=== PATIENT | male | born 1970 | race African-American/Black ===

== ENCOUNTER 2016-09-02 10:08 | Outpatient (RCR) | payer OTHER ==
[~2016-09-02] VITALS: Ht 165.1 cm; Wt 148.3 kg
[~2016-09-02 10:08] MED LIST: AUGMENTIN 875-1 EAC1 ORAL
[2016-09-05] MEDS ORDERED: Lidocaine 4% Top Soln 50ml TOPIC ONE (09:45)
== END 2016-09-24 | disposition home or self-care (01) ==
LOC: WCC 10:08
DX: L97.822 Non-pressure chronic ulcer of other part of left lower leg with fat layer exposed (principal); E08.622 Diabetes mellitus due to underlying condition with other skin ulcer; L97.812 Non-pressure chronic ulcer of other part of right lower leg with fat layer exposed; I10 Essential (primary) hypertension; Z87.891 Personal history of nicotine dependence; I50.9 Heart failure, unspecified; Z80.9 Family history of malignant neoplasm, unspecified
CPT/HCPCS: 11042; 11045; 29580; 87070; 87181; 87205

== ENCOUNTER 2016-09-30 10:04 | Outpatient (RCR) | payer OTHER | END 2016-10-22 | disposition home or self-care (01) | LOC: WCC 10:04 | DX: L97.822 Non-pressure chronic ulcer of other part of left lower leg with fat layer exposed (principal); L03.116 Cellulitis of left lower limb; Z79.82 Long term (current) use of aspirin; E11.9 Type 2 diabetes mellitus without complications; E66.01 Morbid (severe) obesity due to excess calories; Z68.43 Body mass index [BMI] 50.0-59.9, adult | CPT/HCPCS: 11042; 11045 ==

== ENCOUNTER 2017-03-23 15:57 | Emergency (ER) | payer OTHER ==
[~2017-03-23] VITALS: Ht 160 cm; Wt 127.0 kg
[2017-03-23] MEDS ORDERED: METFORMIN HCL500 M1 ORAL ×2 (16:18→16:42)
[2017-03-23] MEDS ORDERED: NIFEDIPINE ER60 M2 ORAL (16:18)
--- NOTE | 2017-03-23 16:40 | Emergency Room Report ---
History of Present Illness General Chief Complaint: General Complaint Source: Patient Present Illness HPI 46 YO Male presents to the ED c/o itchy rash on umbilicus and upper lip x 1 week , and pt. states he needs medication refills for atorvastatin, metformin, Lasix , iron, and nifedipine. Patient denies erythema, increased temperature palpation , Fevers, chills, recent trauma or fall. Patient states he has been out of his medications for a couple of weeks. Pmhx of DM, HTN, and hyperlipidemia. Patient denies polyuria polydipsia, frequency, dysuria, abdominal pain, in balance, headaches, nausea, vomiting. Denies CP, Palpitations, LOC, AMS, dizziness, Changes in Vision, Sensation, paresthesias, or a sudden severe headache. Allergies: Coded Allergies: No Known Allergies (Unverified , 11/29/14) Patient History Past Medical History: see triage record, DM, HTN Past Surgical History: none Pertinent Family History: none Reviewed Nursing Documentation: PMH: Agreed, PSxH: Agreed Nursing Documentation-PMH Hx Hypertension: Yes Hx Diabetes: Yes Review of Systems All Other Systems: negative except mentioned in HPI Physical Exam Vital Signs Date Time Temp Pulse Resp B/P Pulse Ox O2 Delivery O2 Flow Rate FiO2 03/23/17 16:10 98.2 101 16 115/70 95 Room Air Sp02 EP Interpretation: reviewed, abnormal - tachycardic 101 General Appearance: no apparent distress, alert, GCS 15, non-toxic Head: normocephalic, atraumatic Eyes: bilateral eye PERRL, bilateral eye normal inspection ENT: hearing grossly normal, normal pharynx, no angioedema, normal voice Neck: full range of motion, supple/symm/no masses Respiratory: lungs clear, normal breath sounds, speaking full sentences Cardiovascular #1: regular rate, rhythm, no edema Gastrointestinal: normal bowel sounds, non tender, soft, no guarding, no rebound, other - excoriations noted to the umbillicus, no appreciable erythema or increased temperature to palpation. Rectal: deferred Genitourinary: normal inspection, no CVA tenderness Musculoskeletal: back normal, gait/station normal, normal range of motion, non- tender Neurologic: alert, oriented x3, responsive, motor strength/tone normal, sensory intact, speech normal Psychiatric: judgement/insight normal, memory normal, mood/affect normal Skin: normal color, warm/dry, well hydrated, rash - dry excoriated plaque noted to the umbillicus, and above the upper lip, there is no erythema, increased temperature to palpation. no bleeding, crusting or d/c. Lymphatic: no adenopathy Medical Decision Making PA Attestation Dr. dang is my supervising Physician whom patient management has been discussed with. Diagnostic Impression: Primary Impression: Rash and nonspecific skin eruption Additional Impression: Medication refill ER Course 46 YO Male presents to the ED c/o itchy rash on umbilicus and upper lip x 1 week , and pt. states he needs medication refills for atorvastatin, metformin, Lasix , iron, and nifedipine. Patient denies erythema, increased temperature palpation , Fevers, chills, recent trauma or fall. Patient states he has been out of his medications for a couple of weeks. Pmhx of DM, HTN, and hyperlipidemia. Patient denies polyuria polydipsia, frequency, dysuria, abdominal pain, in balance, headaches, nausea, vomiting. Denies CP, Palpitations, LOC, AMS, dizziness, Changes in Vision, Sensation, paresthesias, or a sudden severe headache. Ddx considered but are not limited to cellulitis, scabies, shingles, varicella, dermatitis, urticaria, eczema, tinea, hyperglycemia, HTN urgency/emergency. Vital signs: are WNL, pt. is afebrile H&PE are most consistent with rash of the umbilicus, and dry plaque of the upper lip eczema vs tinea. Pt. also needs medication refill. despite being out of medications, pt. has normal BP measurement, and denies symptoms of hyperglycemia such as polyurea/dipsia, abdominal pain, ams. ORDERS: none required at this time, the diagnosis is clinical ED INTERVENTIONS: None required at this time. DISCHARGE: At this time pt. is stable for d/c to home. Will provide printed patient care instructions, and any necessary prescriptions. Care plan and follow up instructions have been discussed with the patient prior to discharge. Last Vital Signs Date Time Temp Pulse Resp B/P Pulse Ox O2 Delivery O2 Flow Rate FiO2 03/23/17 16:10 98.2 101 16 115/70 95 Room Air Disposition: HOME, SELF-CARE Condition: Stable Scripts Triamcinolone Acet (Triamcinolone Acetonide) 15 Gm Cream..g. 1 APPLIC APPLIC BID, #15 GM Prov: Daxa Ferrer 03/23/17 Nystatin* (NYSTATIN*) 15 Gm Cream..g. 1 APPLIC TOPIC THREE TIMES A DAY, #15 GM Prov: Daxa Ferrer 03/23/17 Ferrous Sulfate* (FERROUS SULFATE*) 325 Mg Tablet 325 MG ORAL DAILY for 30 Days, #30 TAB 0 Refills Prov: Daxa Ferrer 03/23/17 Nifedipine Er* (ADALAT CC*) 60 Mg Tablet.er 60 MG ORAL DAILY for 30 Days, #30 TAB Do not chew or crush tablet Prov: Daxa Ferrer 03/23/17 Furosemide* (LASIX*) 80 Mg Tablet 80 MG ORAL DAILY for 30 Days, #30 TAB Prov: Daxa Ferrer 03/23/17 Metformin Hcl* (METFORMIN HCL*) 500 Mg Tablet 500 MG ORAL TWICE A DAY for 30 Days, #60 TAB Prov: Daxa Ferrer 03/23/17 Atorvastatin Calcium* (ATORVASTATIN CALCIUM*) 40 Mg Tablet 40 MG ORAL BEDTIME for 30 Days, #30 TAB Prov: Daxa Ferrer 03/23/17 Patient Instructions: Medicine Refill at the Emergency Department, Rash, Easy- to-Read Additional Instructions: Take medications as directed. Follow up with a Primary Care Provider in 3-5 days, even if your symptoms have resolved. --Please review list of primary care clinics, if you do not already have a primary care provider Return sooner to ED if new symptoms occur, or current symptoms become worse. - Please note that this Emergency Department Report was dictated using N(i)²clinical documentation spec technology software, occasionally this can lead to erroneous entry secondary to interpretation by the dictation equipment. Daxa Ferrer Mar 23, 2017 16:40
[2017-03-23] MEDS ORDERED: ATORVASTATIN CA40 MG ORAL (16:42)
[2017-03-23] MEDS ORDERED: FUROSEMIDE80 M1 ORAL (16:42)
[2017-03-23 16:47] VITALS: BP 118/74
[2017-03-23] MEDS ORDERED: FERROUS SULFAT325 MG ORAL (16:49)
[2017-03-23] MEDS ORDERED: ADALAT CC60 MG ORAL (16:49)
[2017-03-23] MEDS ORDERED: KENALOG 0.025%15 GM APPLIC (16:54)
[2017-03-23] MEDS ORDERED: NYSTATIN15 GM TOPIC (16:54)
[2017-03-23 17:02] VITALS: BP 118/74
== END 2017-03-23 17:03 | disposition home or self-care (01) ==
LOC: EMR 16:45
DX: R21 Rash and other nonspecific skin eruption (principal); Z76.0 Encounter for issue of repeat prescription; I10 Essential (primary) hypertension; E11.9 Type 2 diabetes mellitus without complications
CPT/HCPCS: 99284

== ENCOUNTER 2017-04-08 20:57 | Emergency (ER) | payer OTHER ==
[~2017-04-08] VITALS: Ht 162.6 cm; Wt 124.7 kg
[~2017-04-08 20:57] MED LIST changes: +ADALAT CC60 MG ORAL; +ATORVASTATIN CA40 MG ORAL; +FERROUS SULFAT325 MG ORAL; +FUROSEMIDE80 M1 ORAL; +KENALOG 0.025%15 GM APPLIC; +METFORMIN HCL500 M1 ORAL; +NIFEDIPINE ER60 M2 ORAL; +NYSTATIN15 GM TOPIC
[2017-04-08] MEDS ORDERED: SPIRONOLACTONE25 MG ORAL (21:34)
[2017-04-08] MEDS ORDERED: ADALAT CC60 MG ORAL ×2 (21:34→21:37)
[2017-04-08 21:45] VITALS: BP 141/98
--- NOTE | 2017-04-08 23:03 | Emergency Room Report ---
History of Present Illness General Chief Complaint: Medication Refill Source: Patient Present Illness HPI 46-year-old male presents ED for evaluation. Patient states he is here to get medication refilled. Has history of hypertension. Has run out of his nifedipine and Spironolactone x3 days. In triage patient is hypertensive. Denies any headaches, blurry vision. Denies chest pain or shortness of breath. No other aggravating or relieving factors. Denies any other associated symptoms Allergies: Coded Allergies: No Known Allergies (Unverified , 04/08/17) Patient History Past Medical History: DM, HTN Past Surgical History: none Pertinent Family History: none Social History: Denies: alcohol use, drug use, smoking Immunizations: UTD Reviewed Nursing Documentation: PMH: Agreed, PSxH: Agreed Nursing Documentation-PMH Hx Hypertension: Yes Hx Diabetes: Yes Review of Systems All Other Systems: negative except mentioned in HPI Physical Exam Vital Signs Date Time Temp Pulse Resp B/P Pulse Ox O2 Delivery O2 Flow Rate FiO2 04/08/17 21:14 98.1 105 18 159/102 97 Room Air Sp02 EP Interpretation: reviewed, normal General Appearance: no apparent distress, alert, GCS 15, non-toxic, obese Head: normocephalic, atraumatic Eyes: bilateral eye PERRL, bilateral eye normal inspection ENT: hearing grossly normal, normal pharynx, no angioedema, normal voice Neck: full range of motion, supple/symm/no masses Respiratory: chest non-tender, lungs clear, normal breath sounds, speaking full sentences Cardiovascular #1: regular rate, rhythm, no edema Cardiovascular #2: 2+ carotid (R), 2+ carotid (L), 2+ radial (R), 2+ radial (L) , 2+ dorsalis pedis (R), 2+ dorsalis pedis (L) Gastrointestinal: normal bowel sounds, non tender, soft, non-distended, no guarding, no rebound Rectal: deferred Genitourinary: normal inspection, no CVA tenderness Musculoskeletal: back normal, gait/station normal, normal range of motion, non- tender Neurologic: alert, oriented x3, responsive, motor strength/tone normal, sensory intact, speech normal Psychiatric: judgement/insight normal, memory normal, mood/affect normal, no suicidal/homicidal ideation Reflexes: 3+ bicep (R), 3+ bicep (L), 3+ tricep (R), 3+ tricep (L), 3+ knee (R) , 3+ knee (L) Skin: normal color, no rash, warm/dry, well hydrated Lymphatic: no adenopathy Medical Decision Making Diagnostic Impression: Primary Impression: Encounter for medication refill Additional Impression: Hypertension Qualified Codes: I10 - Essential (primary) hypertension ER Course 46-year-old male presents to ED refill of his medication. History of hypertension hospital course: After initial history and physical, she produces empty pill bottles for Nifedipine and Spironolactate. Given that, I tell patient I will write her for a two-week prescription of these meds. Patient states he will get a PMD for continued care Diagnosis-encounter for medication refill, hypertension Stable and discharged to home with prescription for Spironolactone, Nifedipine. Followup with PMD. Return to ED if symptoms recur or worsen Last Vital Signs Date Time Temp Pulse Resp B/P Pulse Ox O2 Delivery O2 Flow Rate FiO2 04/08/17 21:45 78 16 141/98 99 Room Air 04/08/17 21:14 98.1 Status: improved Disposition: HOME, SELF-CARE Condition: Stable Scripts Nifedipine Er* (ADALAT CC*) 60 Mg Tablet.er 60 MG ORAL TWICE A DAY for 15 Days, TAB Do not chew or crush tablet Prov: ЕКАТЕРИНА BURRIS M.D. 04/08/17 Spironolactone* (ALDACTONE*) 25 Mg Tablet 25 MG ORAL DAILY, #15 TAB Prov: ЕКАТЕРИНА BURRIS M.D. 04/08/17 Referrals: [facility],REFERRING (PCP) Patient Instructions: Medicine Refill at the Emergency Department ЕКАТЕРИНА BURRIS M.D. Apr 08, 2017 23:03
== END 2017-04-08 21:45 | disposition home or self-care (01) ==
LOC: EMR 21:27
DX: I10 Essential (primary) hypertension (principal); Z76.0 Encounter for issue of repeat prescription; E66.9 Obesity, unspecified; E11.9 Type 2 diabetes mellitus without complications; Z68.42 Body mass index [BMI] 45.0-49.9, adult
CPT/HCPCS: 99283

== ENCOUNTER 2017-05-19 22:06 | Emergency (ER) | payer OTHER ==
[~2017-05-19 22:06] MED LIST changes: +SPIRONOLACTONE25 MG ORAL
--- NOTE | 2017-05-20 04:33 | Emergency Room Report ---
History of Present Illness General Chief Complaint: To Be Triaged Present Illness Allergies: Coded Allergies: No Known Allergies (Unverified , 04/08/17) Nursing Documentation-PMH Hx Hypertension: Yes Hx Diabetes: Yes Medical Decision Making Diagnostic Impression: Primary Impression: Patient left without being seen ER Course patient left prior to MD evaluation Status: unchanged Disposition: LEFT W/OUT BEING SEEN Condition: Unknown Referrals: NOT CHOSEN [facility]/,REFERRING (PCP) ЕКАТЕРИНА BURRIS M.D. May 20, 2017 04:33
== END 2017-05-19 23:00 | disposition left against medical advice (07) ==
LOC: EMR 23:00
DX: B99.9 Unspecified infectious disease (principal); Z53.21 Procedure and treatment not carried out due to patient leaving prior to being seen by health care provider
CPT/HCPCS: 99281

== ENCOUNTER 2017-05-26 21:27 | Emergency (ER) | payer OTHER ==
[~2017-05-26] VITALS: Ht 162.6 cm; Wt 113.4 kg
[2017-05-26] MEDS ORDERED: ASPIR 8181 MG ORAL (21:36)
[2017-05-26] MEDS ORDERED: POTASSIUM99 M3 PO (21:36)
[2017-05-26] MEDS ORDERED: BUMETANIDE0.5 MG ORAL (21:36)
[2017-05-26 21:51] VITALS: BP 134/85
[2017-05-26] MEDS ORDERED: BUMETANIDE1 MG ORAL (22:07)
[2017-05-26] MEDS ORDERED: PROCARDIA XL60 MG ORAL (22:07)
[2017-05-26] MEDS ORDERED: METFORMIN HCL500 M1 ORAL (22:07)
--- NOTE | 2017-05-26 22:08 | Emergency Room Report ---
History of Present Illness General Chief Complaint: Hypertension Source: Patient Present Illness HPI Is a 46-year-old male with a history of diabetes, hypertension, sleep apnea presents with chief complaint of high blood pressure. He is out of his medication for about a week now. Wants refills. Denies any other complaint. No nausea no vomiting. No chest pain. No shortness of breath. Allergies: Coded Allergies: No Known Allergies (Unverified , 04/08/17) Patient History Past Medical History: see triage record, old chart reviewed, DM, HTN Past Surgical History: none, other Pertinent Family History: none Social History: Denies: drug use Immunizations: other Reviewed Nursing Documentation: PMH: Agreed, PSxH: Agreed Nursing Documentation-PMH Hx Hypertension: Yes Hx COPD: Yes Hx Diabetes: Yes Review of Systems Eye: Denies: eye pain, blurred vision ENT: Denies: ear pain, nose congestion, throat swelling Respiratory: Denies: cough, shortness of breath Cardiovascular: Denies: chest pain, palpitations Gastrointestinal: Denies: abdominal pain, diarrhea, nausea, vomiting Musculoskeletal: Denies: back pain, joint pain Skin: Denies: rash Neurological: Denies: headache, numbness Endocrine: Denies: increased thirst, increased urine Hematologic/Lymphatic: Denies: easy bruising All Other Systems: negative except mentioned in HPI Physical Exam Vital Signs Date Time Temp Pulse Resp B/P (MAP) Pulse Ox O2 Delivery O2 Flow Rate FiO2 05/26/17 21:29 97.9 102 20 154/104 94 Room Air vitals with high blood pressure Sp02 EP Interpretation: reviewed, normal General Appearance: well appearing, no apparent distress, alert, obese Head: normocephalic, atraumatic Eyes: bilateral eye PERRL, bilateral eye EOMI ENT: hearing grossly normal, normal pharynx Neck: full range of motion, supple, no meningismus Respiratory: chest non-tender, lungs clear, normal breath sounds Cardiovascular #1: regular rate, rhythm, no murmur Gastrointestinal: normal bowel sounds, non tender, no mass, no organomegaly, no bruit, non-distended Musculoskeletal: back normal, gait/station normal, normal range of motion Psychiatric: mood/affect normal Skin: warm/dry Medical Decision Making Diagnostic Impression: Primary Impression: Hypertension Qualified Codes: I10 - Essential (primary) hypertension Additional Impression: Encounter for medication refill ER Course Patient was high blood pressure. No evidence of endorgan damage. We'll refill his medication. Last Vital Signs Date Time Temp Pulse Resp B/P (MAP) Pulse Ox O2 Delivery O2 Flow Rate FiO2 05/26/17 21:51 97.9 101 23 134/85 94 Room Air Status: improved Disposition: HOME, SELF-CARE Condition: Stable Scripts Metformin Hcl* (METFORMIN HCL*) 500 Mg Tablet 500 MG ORAL TWICE A DAY, #60 TAB Prov: ELI WALKER M.D. 05/26/17 Bumetanide* (BUMETANIDE*) 1 Mg Tablet 1 MG ORAL DAILY, #30 TAB Prov: ELI WALKER M.D. 05/26/17 Nifedipine (Procardia Xl) 60 Mg Tab.er.24 60 MG ORAL DAILY, #30 TAB Prov: ELI WALKER M.D. 05/26/17 Patient Instructions: High Blood Pressure (Hypertension) Additional Instructions: Followup your doctor in a week for recheck. Return if symptom worsen. ELI WALKER M.D. May 26, 2017 22:08
[2017-05-26 22:19] VITALS: BP 134/85
== END 2017-05-26 22:31 | disposition home or self-care (01) ==
LOC: EMR 22:31
DX: I10 Essential (primary) hypertension (principal); Z76.0 Encounter for issue of repeat prescription; E11.9 Type 2 diabetes mellitus without complications; J44.9 Chronic obstructive pulmonary disease, unspecified
CPT/HCPCS: 99284

== ENCOUNTER 2017-07-15 17:42 | Emergency (ER) | payer OTHER ==
[~2017-07-15] VITALS: Ht 162.6 cm; Wt 113.4 kg
[~2017-07-15 17:42] MED LIST changes: +ASPIR 8181 MG ORAL; +BUMETANIDE0.5 MG ORAL; +BUMETANIDE1 MG ORAL; +POTASSIUM99 M3 PO; +PROCARDIA XL60 MG ORAL
--- NOTE | 2017-07-15 18:21 | Emergency Room Report ---
History of Present Illness General Chief Complaint: Medication Refill Source: Patient Present Illness HPI 46-year-old male presents to the emergency department requesting refill for his blood pressure medication, diabetic medication in addition to medication for hyperlipidemia. Patient states that he's been out of his blood pressure medication for approximately one week and has been using someone else's medication that is different. Patient reports still 5/10 in severity headache denies visual changes, nausea, vomiting, sudden acute onset of headache. Patient states that he has been taking his diabetic medications regularly and he took a dose today he states that he will run out soon and is requesting refill. Patient denies polyuria polydipsia, abdominal pain or changes in mentation.Denies CP, Palpitations, LOC, AMS, dizziness, Changes in Vision, Sensation, paresthesias, or a sudden severe headache. Allergies: Coded Allergies: No Known Allergies (Unverified , 04/08/17) Patient History Past Medical History: see triage record Past Surgical History: none Pertinent Family History: none Immunizations: UTD Reviewed Nursing Documentation: PMH: Agreed, PSxH: Agreed Nursing Documentation-PMH Past Medical History: No History, Except For Hx Hypertension: Yes Hx COPD: Yes Hx Diabetes: Yes Review of Systems All Other Systems: negative except mentioned in HPI Physical Exam Vital Signs Date Time Temp Pulse Resp B/P (MAP) Pulse Ox O2 Delivery O2 Flow Rate FiO2 07/15/17 17:56 98.1 83 18 165/101 95 Room Air Sp02 EP Interpretation: reviewed, normal General Appearance: no apparent distress, alert, GCS 15, non-toxic Head: normocephalic, atraumatic Eyes: bilateral eye normal inspection, bilateral eye PERRL ENT: hearing grossly normal, no angioedema, normal voice Neck: full range of motion Respiratory: lungs clear, normal breath sounds, speaking full sentences Cardiovascular #1: regular rate, rhythm Rectal: deferred Musculoskeletal: back normal, gait/station normal, normal range of motion, non- tender Neurologic: alert, oriented x3, responsive, motor strength/tone normal, sensory intact, speech normal Skin: normal color, no rash, warm/dry, well hydrated Lymphatic: no adenopathy Medical Decision Making PA Attestation Dr. dang is my supervising Physician whom patient management has been discussed with. Diagnostic Impression: Primary Impression: Encounter for medication refill ER Course 46-year-old male presents to the emergency department requesting refill for his blood pressure medication, diabetic medication in addition to medication for hyperlipidemia. Patient states that he's been out of his blood pressure medication for approximately one week and has been using someone else's medication that is different. Patient reports still 5/10 in severity headache denies visual changes, nausea, vomiting, sudden acute onset of headache. Patient states that he has been taking his diabetic medications regularly and he took a dose today he states that he will run out soon and is requesting refill. Patient denies polyuria polydipsia, abdominal pain or changes in mentation.Denies CP, Palpitations, LOC, AMS, dizziness, Changes in Vision, Sensation, paresthesias, or a sudden severe headache. Ddx considered but are not limited to: drug seeking, OD, HTN urgency, DKA, HONA just to name a few. Vital signs: are WNL, pt. is afebrile H&PE are most consistent with need for medication refill. ORDERS: none required at this time, the diagnosis is clinical ED INTERVENTIONS: -Nifedipine PO DISCHARGE: At this time pt. is stable for d/c to home. Will provide printed patient care instructions, and any necessary prescriptions. Care plan and follow up instructions have been discussed with the patient prior to discharge. Last Vital Signs Date Time Temp Pulse Resp B/P (MAP) Pulse Ox O2 Delivery O2 Flow Rate FiO2 07/15/17 17:56 98.1 83 18 165/101 95 Room Air Disposition: HOME, SELF-CARE Condition: Stable Scripts Atorvastatin Calcium* (ATORVASTATIN CALCIUM*) 40 Mg Tablet 40 MG ORAL BEDTIME, #20 TAB Prov: Daxa Ferrer P.A. 07/15/17 Bumetanide* (BUMETANIDE*) 2 Mg Tablet 2 MG ORAL DAILY, #30 TAB Prov: Daxa Ferrer P.A. 07/15/17 Spironolactone* (ALDACTONE*) 25 Mg Tablet 25 MG ORAL DAILY, #30 TAB Prov: Daxa Ferrer P.A. 07/15/17 Metformin Hcl* (METFORMIN HCL*) 500 Mg Tablet 500 MG ORAL TWICE A DAY, #60 TAB Prov: Daxa Ferrer P.A. 07/15/17 Nifedipine Er* (NIFEDIPINE ER*) 60 Mg Tab.er.24 60 MG ORAL DAILY, #30 TAB Prov: Daxa Ferrer 07/15/17 Patient Instructions: Medicine Refill at the Emergency Department Additional Instructions: Take medications as directed. Follow up with a Primary Care Provider in 3-5 days, even if your symptoms have resolved. --Please review list of primary care clinics, if you do not already have a primary care provider Return sooner to ED if new symptoms occur, or current symptoms become worse. - Please note that this Emergency Department Report was dictated using MemBlazehome care nurse technology software, occasionally this can lead to erroneous entry secondary to interpretation by the dictation equipment. Daxa Ferrer Jul 15, 2017 18:21
[2017-07-15] MEDS ORDERED: NIFEDIPINE ER60 M3 ORAL (18:24)
[2017-07-15] MEDS ORDERED: METFORMIN HCL500 M1 ORAL (18:24)
[2017-07-15] MEDS ORDERED: BUMETANIDE2 MG ORAL (18:24)
[2017-07-15] MEDS ORDERED: ATORVASTATIN CA40 MG ORAL (18:24)
[2017-07-15] MEDS ORDERED: SPIRONOLACTONE25 MG ORAL (18:24)
[2017-07-15 18:27] VITALS: BP 165/101
[2017-07-15 19:08] VITALS: BP 159/89
== END 2017-07-15 19:12 | disposition home or self-care (01) ==
LOC: EMR 18:06
DX: Z76.0 Encounter for issue of repeat prescription (principal); I10 Essential (primary) hypertension; J44.9 Chronic obstructive pulmonary disease, unspecified; E11.9 Type 2 diabetes mellitus without complications
CPT/HCPCS: 99284

== ENCOUNTER 2018-03-24 09:57 | Emergency (ER) | payer OTHER ==
[~2018-03-24] VITALS: Ht 160 cm; Wt 136.1 kg
[~2018-03-24 09:57] MED LIST changes: +BUMETANIDE2 MG ORAL; +NIFEDIPINE ER60 M3 ORAL
[2018-03-24] MEDS ORDERED: FUROSEMIDE40 MG ORAL (10:11)
[2018-03-24] MEDS ORDERED: LISINOPRIL5 MG ORAL (10:11)
[2018-03-24] MEDS ORDERED: BENADRYL25 MG ORAL (11:16)
[2018-03-24] MEDS ORDERED: PREDNISONE20 MG ORAL (11:16)
[2018-03-24] MEDS ORDERED: VOLTAREN100 G1 TP (11:17)
--- NOTE | 2018-03-24 11:34 | Diagnostic Imaging Report ---
Indication: Shortness of breath Technique: XRAY Chest 1v Comparison: 01/01/2012 Findings: Limited exam due to underpenetration, likely related to patient's large body habitus. Stable cardiomegaly. Fashion mild peribronchial thickening. No definite focal consolidation. Costophrenic sulci are sharp. No pneumothorax. Osseous structures stable. IMPRESSION: Question mild peribronchial thickening. Correlate for reactive or small airway disease. No focal airspace consolidation, pleural effusion or pneumothorax. Stable mild cardiomegaly.
[2018-03-24 11:51] VITALS: BP 101/53
--- NOTE | 2018-03-24 13:22 | Emergency Room Report ---
History of Present Illness General Chief Complaint: Edema Source: Patient Present Illness HPI Patient is a 47-year-old male who presented after increased upper lip swelling. Patient gradual onset of symptoms. He denies any recent VIBHA inhibitor use. He reports having increased pain and discomfort to his left lower extremity as well. He reported having some additional swelling to his right hand. He denies recent trauma. The patient states that he had not been having any difficulty breathing or tongue swelling. Allergies: Coded Allergies: No Known Allergies (Unverified , 04/08/17) Patient History Reviewed Nursing Documentation: PMH: Agreed; PSxH: Agreed Nursing Documentation-PMH Hx Hypertension: Yes Hx COPD: Yes Hx Diabetes: Yes Review of Systems All Other Systems: negative except mentioned in HPI Physical Exam Vital Signs Date Time Temp Pulse Resp B/P (MAP) Pulse Ox O2 Delivery O2 Flow Rate FiO2 03/24/18 10:06 98.6 100 18 101/53 98 Room Air 98.6 Sp02 EP Interpretation: reviewed, normal General Appearance: normal inspection, well appearing, no apparent distress, alert, GCS 15, non-toxic, obese Head: atraumatic ENT: hearing grossly normal, normal voice, other - upper lip swelling, no uvula swelling or tongue swelling Neck: normal inspection, full range of motion, supple, no bony tend Respiratory: normal inspection, lungs clear, normal breath sounds, no respiratory distress, no retraction, no wheezing Cardiovascular #1: regular rate, rhythm, edema - bilateral lower extremity Gastrointestinal: normal inspection, normal bowel sounds, non tender, soft, no guarding, no hernia Genitourinary: no CVA tenderness Musculoskeletal: normal inspection, back normal, normal range of motion Neurologic: normal inspection, alert, oriented x3, responsive, resident services director III-XII nml as tested, speech normal Psychiatric: normal inspection, judgement/insight normal, mood/affect normal Skin: normal inspection, normal color, no rash Medical Decision Making Diagnostic Impression: Primary Impression: Allergic reaction ER Course Patient presented for lip swelling. Differential diagnosis included was not limited to angioedema, abscess, allergic reaction, burn among others. Patient has a benign exam and does not appear to require any further imaging or laboratory testing at this time. The patient appears to be having multiple areas of swelling and was given oral Benadryl as well as prednisone. Patient does not appear to have any airway compromise at this time. Patient is advised to not take lisinopril. The patient states he has not been taking this regularly.The patient is advised to follow up with primary care doctor in 1-2 days. Patient is advised to return if any worsening condition or if any changes in status that are concerning. This report is dictated with [employer] lead software developer software which may occasionally lead to discrepancies related to use of this software. Last Vital Signs Date Time Temp Pulse Resp B/P (MAP) Pulse Ox O2 Delivery O2 Flow Rate FiO2 03/24/18 11:51 98.6 18 101/53 98 Room Air 98.6 03/24/18 10:16 100 Status: improved Disposition: HOME, SELF-CARE Condition: Stable Scripts Diclofenac Sodium (VOLTAREN) 100 Gm Gel..gram. 100 GM TP NEEDED, #100 GM Prov: Eleuterio Jain MD 03/24/18 Prednisone* (PREDNISONE*) 20 Mg Tablet 60 MG ORAL DAILY, #12 TAB Prov: Eleuterio Jain MD 03/24/18 Diphenhydramine Hcl* (BENADRYL*) 25 Mg Capsule 25 MG ORAL Q6H PRN for Itching, #30 CAP Prov: Eleuterio Jain MD 03/24/18 Referrals: [facility],REFERRING (PCP) Patient Instructions: Peripheral Edema Eleuterio Jain MD Mar 24, 2018 13:22
== END 2018-03-24 11:52 | disposition home or self-care (01) ==
LOC: EMR 11:24
DX: T78.40XA Allergy, unspecified, initial encounter (principal); X58.XXXA Exposure to other specified factors, initial encounter; Y92.9 Unspecified place or not applicable; E11.9 Type 2 diabetes mellitus without complications; I10 Essential (primary) hypertension; J44.9 Chronic obstructive pulmonary disease, unspecified
CPT/HCPCS: 71045; 99284; J7512

== ENCOUNTER 2018-06-12 20:31 | Emergency (ER) | payer OTHER ==
[~2018-06-12] VITALS: Ht 165.1 cm; Wt 158.8 kg
[~2018-06-12 20:31] MED LIST changes: +BENADRYL25 MG ORAL; +FUROSEMIDE40 MG ORAL; +LISINOPRIL5 MG ORAL; +PREDNISONE20 MG ORAL; +VOLTAREN100 G1 TP
--- NOTE | 2018-06-12 21:09 | Emergency Room Report ---
History of Present Illness General Chief Complaint: To Be Triaged Source: Patient Present Illness HPI Patient presents with several problems. He has shortness of breath. His history of asthma and COPD. He's been out of his medications for several days. Also has a sore throat and right ear pain. He also stubbed his right little toe and has had pain there. He's worried that his blood pressures out of control because is not taking his medications. He denies any chest pain at this time. He has heard himself wheezing with exertion. Some orthopnea. He rates the pain in his toe as 8/10. He thinks it is broken. H/O CHF H/O COPD H/O sleep apnea No fevers, chills, chest pain, headache, rashes, joint pain, back pain, bleeding problems, NVD. He does have edema which is worse off of his meds. He denies calf pain. Allergies: Coded Allergies: No Known Allergies (Unverified , 04/08/17) Patient History Past Medical History: see triage record Social History: Reports: smoking Social History Narrative lives with his Mom Reviewed Nursing Documentation: PMH: Agreed; PSxH: Agreed Nursing Documentation-PMH Hx Hypertension: Yes Hx COPD: Yes Hx Diabetes: Yes Review of Systems All Other Systems: negative except mentioned in HPI Physical Exam Vital Signs Date Time Temp Pulse Resp B/P (MAP) Pulse Ox O2 Delivery O2 Flow Rate FiO2 06/12/18 21:20 98.8 93 18 182/94 94 Room Air 98.8 06/12/18 21:47 21 Sp02 EP Interpretation: reviewed, normal General Appearance: no apparent distress, GCS 15, obese Head: normocephalic Eyes: bilateral eye normal inspection, bilateral eye PERRL ENT: moist mucus membranes Neck: supple Respiratory: lungs clear, normal breath sounds, decreased breath sounds Cardiovascular #1: regular rate, rhythm, edema - bilat 1 + Cardiovascular #2: 2+ radial (R) Gastrointestinal: normal inspection, normal bowel sounds, non tender, no mass, non-distended, overweight Genitourinary: no CVA tenderness Musculoskeletal: back normal, gait/station normal, normal range of motion Neurologic: alert, oriented x3, grossly normal Psychiatric: mood/affect normal Skin: normal inspection, warm/dry Medical Decision Making Diagnostic Impression: Primary Impression: Dyspnea Qualified Codes: R06.00 - Dyspnea, unspecified Additional Impressions: Hypertension Qualified Codes: I10 - Essential (primary) hypertension Contusion of right lesser toe(s) without damage to nail, sequela Bronchospasm Otitis media Qualified Codes: H65.191 - Other acute nonsuppurative otitis media, right ear Cor pulmonale (chronic) ER Course Patient presents with several complaints. Regarding the shortness of breath when he to exclude cardiac cause of including myocardial infarction, coronary syndrome. Also we need to take a chest x-ray and treat for COPD with noncompliance. Sore throat and the possibility is of strep versus viral. In addition an x-ray of his right foot will be obtained. Labs will be obtained. Breathing treatment ordered. Motrin given for toe pain. Much of this appears to be due to non-compliance. EKG without injury. CXR no CHF. Labs with normal H/H, mildly elevated WBC. CMP with elevated bicarb. BNP elevated. Troponin negative. Toe films without fracture. Given lasix here. BP improved. Patient given antibiotics for OM R. Pain improved. Breathing improved. BP improved. Patient given Rx's and advised to follow up with his doctor. Patient stable for outpatient observation and treatment. Laboratory Tests Test 06/12/18 22:40 White Blood Count 13.4 K/UL (4.8-10.8) H Red Blood Count 4.81 M/UL (4.70-6.10) Hemoglobin 12.6 G/DL (14.2-18.0) L Hematocrit 40.3 % (42.0-52.0) L Mean Corpuscular Volume 84 FL (80-99) Mean Corpuscular Hemoglobin 26.1 PG (27.0-31.0) L Mean Corpuscular Hemoglobin Concent 31.2 G/DL (32.0-36.0) L Red Cell Distribution Width 14.7 % (11.6-14.8) Platelet Count 352 K/UL (150-450) Mean Platelet Volume 5.5 FL (6.5-10.1) L Neutrophils (%) (Auto) 72.0 % (45.0-75.0) Lymphocytes (%) (Auto) 20.7 % (20.0-45.0) Monocytes (%) (Auto) 5.4 % (1.0-10.0) Eosinophils (%) (Auto) 0.8 % (0.0-3.0) Basophils (%) (Auto) 1.1 % (0.0-2.0) Prothrombin Time 10.1 SEC (9.30-11.50) Prothrombin Time INR 1.0 (0.9-1.1) PTT 30 SEC (23-33) Urine Color Pale yellow Urine Appearance Clear Urine pH 6.5 (4.5-8.0) Urine Specific [place] 1.015 (1.005-1.035) Urine Protein 3+ (NEGATIVE) H Urine Glucose (UA) Negative (NEGATIVE) Urine Ketones Negative (NEGATIVE) Urine Blood 1+ (NEGATIVE) H Urine Nitrite Negative (NEGATIVE) Urine Bilirubin Negative (NEGATIVE) Urine Urobilinogen Normal MG/DL (0.0-1.0) Urine Leukocyte Esterase Negative (NEGATIVE) Urine RBC 0-2 /HPF (0 - 0) H Urine WBC 0-2 /HPF (0 - 0) Urine Squamous Epithelial Cells None /LPF (NONE/OCC) Urine Bacteria Few /HPF (NONE) Sodium Level 144 MMOL/L (136-145) Potassium Level 3.8 MMOL/L (3.5-5.1) Chloride Level 104 MMOL/L (98-107) Carbon Dioxide Level 36 MMOL/L (21-32) H Anion Gap 5 mmol/L (5-15) Blood Urea Nitrogen 18 mg/dL (7-18) Creatinine 1.2 MG/DL (0.55-1.30) Estimate Glomerular Filtration Rate > 60 mL/min (>60) Glucose Level 104 MG/DL (74-106) Calcium Level 9.2 MG/DL (8.5-10.1) Total Bilirubin 0.3 MG/DL (0.2-1.0) Aspartate Amino Transferase (AST) 20 U/L (15-37) Alanine Aminotransferase (ALT) 41 U/L (12-78) Alkaline Phosphatase 89 U/L (46-116) Total Creatine Kinase 225 U/L (26-308) Troponin I 0.030 ng/mL (0.000-0.056) Pro-B-Type Natriuretic Peptide 1007 pg/mL (0-125) H Total Protein 7.9 G/DL (6.4-8.2) Albumin 3.1 G/DL (3.4-5.0) L Globulin 4.8 g/dL Albumin/Globulin Ratio 0.6 (1.0-2.7) L Urine Opiates Screen Negative (NEGATIVE) Urine Barbiturates Screen Negative (NEGATIVE) Phencyclidine (PCP) Screen Negative (NEGATIVE) Urine Amphetamines Screen Negative (NEGATIVE) Urine Benzodiazepines Screen Negative (NEGATIVE) Urine Cocaine Screen Negative (NEGATIVE) Urine Marijuana (THC) Screen Positive (NEGATIVE) H EKG Diagnostic Results Rate: normal Rhythm: NSR ST Segments: no acute changes Rhythm Strip Diag. Results EP Interpretation: yes Rhythm: NSR, other - PVC, rate 97 Chest X-Ray Diagnostic Results Chest X-Ray Diagnostic Results : Chest X-Ray Ordered: Yes # of Views/Limited/Complete: 1 View Indication: Other EP Interpretation: Yes Interpretation: no consolidation, no effusion, no pneumothorax Impression: No acute disease Electronically Signed by: Orlando Hector MD Last Vital Signs Date Time Temp Pulse Resp B/P (MAP) Pulse Ox O2 Delivery O2 Flow Rate FiO2 06/13/18 01:57 97.8 80 16 167/94 96 Room Air 21 97.8 Status: improved Disposition: HOME, SELF-CARE Condition: Improved Scripts Albuterol Sulfate* (ALBUTEROL SULFATE MDI*) 8.5 Gm Hfa.aer.ad 2 PUFF INH Q6H, #1 EA 0 Refills Prov: Orlando Hector M.D. 06/13/18 Acetaminophen (Tylenol) 325 Mg Tablet 650 MG ORAL Q6H PRN for Prn Pain/Headache/Temp > 101, #20 TAB 0 Refills Prov: Orlando Hector M.D. 06/13/18 Amoxicillin* (AMOXIL*) 500 Mg Capsule 500 MG ORAL THREE TIMES A DAY, #21 CAP Prov: Orlando Hector M.D. 06/13/18 Nifedipine* (NIFEDIPINE ER*) 60 Mg Tablet.er 60 MG ORAL DAILY, #20 TAB Prov: Orlando Hector M.D. 06/13/18 Metformin Hcl* (METFORMIN HCL*) 500 Mg Tablet 500 MG ORAL TWICE A DAY, #40 TAB Prov: Orlando Hector M.D. 06/13/18 Furosemide* (LASIX*) 40 Mg Tablet 40 MG ORAL DAILY, #20 TAB Prov: Orlando Hector M.D. 06/13/18 Atorvastatin Calcium* (ATORVASTATIN CALCIUM*) 40 Mg Tablet 40 MG ORAL BEDTIME, #20 TAB Prov: Orlando Hector M.D. 06/13/18 Aspirin (Aspirin EC) 81 Mg Tablet. 81 MG ORAL DAILY, #20 TAB Prov: Orlando Hector M.D. 06/13/18 Orlando Hector M.D. Jun 12, 2018 21:09
[2018-06-12] MEDS ORDERED: Ipratropium 0.02% Inh Soln 2.5ml UD HHN ONE (21:15)
[2018-06-12] MEDS ORDERED: Albuterol ud Inhalation HHN ONE (21:15)
[2018-06-12 21:20] VITALS: BP 182/94
--- NOTE | 2018-06-12 22:25 | Diagnostic Imaging Report ---
History: TRAUMA Exam: XR CXR 1 VIEW Comparison: 03/24/2000 FINDINGS: The lungs appear clear. The cardiac and mediastinal contours appear within limits. Acromioclavicular joint degenerative change. IMPRESSION: No evidence of acute traumatic injury.
--- NOTE | 2018-06-12 22:32 | Diagnostic Imaging Report ---
History: TRAUMA Exam: XR RIGHT FOOT Comparison: None available FINDINGS: No fracture or dislocation. Developmental osseous fusion of the middle and distal phalanx of the third fourth and fifth rays. 5 mm enthesophyte plantar surface of the calcaneus. Focal areas of ossification adjacent to the distal tibia may be sequela of old injury. IMPRESSION: No fracture or dislocation.
[2018-06-12 23:07] LABS: BASOPHILS % (AUTO) 1.1 % (0.0-2.0); EOSINOPHILS % (AUTO) 0.8 % (0.0-3.0); HEMATOCRIT 40.3 % (42.0-52.0); HEMOGLOBIN 12.6 G/DL (14.2-18.0); LYMPHOCYTES % (AUTO) 20.7 % (20.0-45.0); MEAN CORPUSCULAR VOLUME 84 FL (80-99); MONOCYTES % (AUTO) 5.4 % (1.0-10.0); PLATELET COUNT 352 K/UL (150-450); RED BLOOD COUNT 4.81 M/UL (4.70-6.10); RED CELL DISTRIBUTION WIDTH 14.7 % (11.6-14.8); WHITE BLOOD COUNT 13.4 K/UL (4.8-10.8)
[2018-06-12 23:08] LABS: APPEARANCE,URINE CLEAR; BILIRUBIN, URINE NEGATIVE (NEGATIVE); COLOR,URINE PALE YELLOW; GLUCOSE, URINE (UA) NEGATIVE (NEGATIVE); KETONES,URINE NEGATIVE (NEGATIVE); LEUKOCYTE ESTERASE ,URINE NEGATIVE (NEGATIVE); NITRITE,URINE NEGATIVE (NEGATIVE); PH,URINE 6.5 (4.5-8.0); PROTEIN,URINE 3+ (NEGATIVE); UROBILINOGEN,URINE NORMAL MG/DL (0.0-1.0)
[2018-06-12 23:12] LABS: ANION GAP 5 mmol/L (5-15); BLOOD UREA NITROGEN 18 mg/dL (7-18); CALCIUM 9.2 MG/DL (8.5-10.1); CARBON DIOXIDE 36 MMOL/L (21-32); CHLORIDE 104 MMOL/L (98-107); CREATININE 1.2 MG/DL (0.55-1.30); POTASSIUM 3.8 MMOL/L (3.5-5.1); SODIUM 144 MMOL/L (136-145)
[2018-06-12 23:22] LABS: ALANINE AMINOTRANSFERASE 41 U/L (12-78); ALBUMIN 3.1 G/DL (3.4-5.0); ALBUMIN/GLOBULIN RATIO 0.6 (1.0-2.7); ALKALINE PHOSPHATASE 89 U/L (46-116); ASPARTATE AMINO TRANSFERASE 20 U/L (15-37); BILIRUBIN,TOTAL 0.3 MG/DL (0.2-1.0); CREATINE KINASE 225 U/L (26-308)
[2018-06-13 01:05] VITALS: BP 167/94
[2018-06-13] MEDS ORDERED: FUROSEMIDE40 MG ORAL (01:37)
[2018-06-13] MEDS ORDERED: TYLENOL325 MG ORAL (01:37)
[2018-06-13] MEDS ORDERED: ATORVASTATIN CA40 MG ORAL (01:37)
[2018-06-13] MEDS ORDERED: ASPIRIN-LOW81 MG ORAL (01:37)
[2018-06-13] MEDS ORDERED: NIFEDIPINE ER60 M2 ORAL (01:37)
[2018-06-13] MEDS ORDERED: METFORMIN HCL500 M1 ORAL (01:37)
[2018-06-13] MEDS ORDERED: AMOXICILLIN500 MG ORAL (01:37)
[2018-06-13] MEDS ORDERED: ALBUTEROL SULF8.5 GM INH (01:37)
[2018-06-13 01:57] VITALS: BP 167/94
== END 2018-06-13 02:05 | disposition home or self-care (01) ==
LOC: EMR 23:31
DX: R06.00 Dyspnea, unspecified (principal); S90.121A Contusion of right lesser toe(s) without damage to nail, initial encounter; X58.XXXA Exposure to other specified factors, initial encounter; H66.91 Otitis media, unspecified, right ear; Y92.9 Unspecified place or not applicable; J44.9 Chronic obstructive pulmonary disease, unspecified; I10 Essential (primary) hypertension; E11.9 Type 2 diabetes mellitus without complications
CPT/HCPCS: 36415; 71045; 73630; 80053; 80307; 81003; 82550; 83880; 84484; 85025; 85610; 85730; 93005; 94640; 96374; 99284; J1940

== ENCOUNTER 2018-08-08 19:27 | Emergency (ER) | payer OTHER ==
[~2018-08-08] VITALS: Ht 160 cm; Wt 158.8 kg
[~2018-08-08 19:27] MED LIST changes: +ALBUTEROL SULF8.5 GM INH; +AMOXICILLIN500 MG ORAL; +ASPIRIN-LOW81 MG ORAL; +TYLENOL325 MG ORAL
[2018-08-08 19:45] VITALS: BP 143/84
--- NOTE | 2018-08-08 19:56 | Emergency Room Report ---
History of Present Illness General Chief Complaint: Chest Pain Source: Patient Present Illness HPI Patient presents with one month of increasing dyspnea and edema in his legs. He 's been doubling up on his Lasix. He checked in the past and sometimes he needed to take Bumex. Also he's been having dyspnea on exertion and some orthopnea. He usually takes an Advair discus. He's not had that recently and only has Ventolin. He does hear himself wheezing. He's had a mildly productive cough and he gets anxious when he gets short of breath. Denies any documented fevers. There is no color to the phlegm. Belly pain 6/10 - sharp and pressure, more where skin is swollen. No headache, polies, diarrhea, depression, joint pain. No hemoptysis. Allergies: Coded Allergies: No Known Allergies (Unverified , 04/08/17) Patient History Past Medical History: see triage record Social History: Reports: smoking, drug use - thc Social History Narrative disabled Reviewed Nursing Documentation: PMH: Agreed; PSxH: Agreed Nursing Documentation-PMH Hx Cardiac Problems: No Hx Hypertension: Yes Hx Pacemaker: No Hx Asthma: Yes Hx COPD: Yes Hx Diabetes: Yes - borderline Hx Cancer: No Hx Gastrointestinal Problems: No Hx Dialysis: No History Of Psychiatric Problem: No Hx Neurological Problems: No Hx Cerebrovascular Accident: No Hx Seizures: No Review of Systems All Other Systems: negative except mentioned in HPI Physical Exam Vital Signs Date Time Temp Pulse Resp B/P (MAP) Pulse Ox O2 Delivery O2 Flow Rate FiO2 08/08/18 19:34 100 19 149/87 92 Room Air Sp02 EP Interpretation: reviewed, abnormal - interpreted as low by me General Appearance: no apparent distress, alert, GCS 15, obese Head: normocephalic, atraumatic Eyes: bilateral eye PERRL, bilateral eye Scleral Injection ENT: moist mucus membranes Neck: full range of motion, supple Respiratory: no respiratory distress, no retraction, decreased breath sounds Cardiovascular #1: tachycardia, edema - LE and lower abdomen Cardiovascular #2: 2+ radial (R), 2+ dorsalis pedis (R), 2+ dorsalis pedis (L) Gastrointestinal: soft, no guarding, no rebound, other - tender edema lower abdomen, overweight Genitourinary: no CVA tenderness Musculoskeletal: back normal, gait/station normal, normal range of motion, no calf tenderness, Opal's Sign negative Neurologic: alert, oriented x3, grossly normal Psychiatric: mood/affect normal Skin: warm/dry, other - venous disease with some erythema Medical Decision Making Diagnostic Impression: Primary Impression: Chest pain Qualified Codes: R07.9 - Chest pain, unspecified Additional Impressions: Bronchospasm Cor pulmonale Abdominal pain Qualified Codes: R10.30 - Lower abdominal pain, unspecified ER Course Patient presents with increased edema and orthopnea some chest pressure. Differential includes acute myocardial infarction, pulmonary embolus, congestive heart failure, cor pulmonale, bronchospasm, pneumonia amongst others. The patient will be evaluated with EKG, chest x-ray and labs. The patient will be treated with Lasix and also albuterol and Atrovent. EKG normal sinus rhythm rate 97 rightward axis nonspecific T-wave abnormalities prolonged QT interval corrected is 464 ms. Normal CBC with mild anemia. CMP with elevated bicarb. CK elevated. UA clear. +THC Patient with diuresis. Improved with breathing treatments. Discussed outpatient treatment. He states has abdominal pain and concerned that won't respond to outpatient medications. Admit med. Contact Dr. Duarte for transfer. S Laboratory Tests Test 08/08/18 20:15 White Blood Count 10.8 K/UL (4.8-10.8) Red Blood Count 5.16 M/UL (4.70-6.10) Hemoglobin 12.5 G/DL (14.2-18.0) L Hematocrit 40.9 % (42.0-52.0) L Mean Corpuscular Volume 79 FL (80-99) L Mean Corpuscular Hemoglobin 24.2 PG (27.0-31.0) L Mean Corpuscular Hemoglobin Concent 30.5 G/DL (32.0-36.0) L Red Cell Distribution Width 15.4 % (11.6-14.8) H Platelet Count 373 K/UL (150-450) Mean Platelet Volume 5.6 FL (6.5-10.1) L Neutrophils (%) (Auto) 67.7 % (45.0-75.0) Lymphocytes (%) (Auto) 22.5 % (20.0-45.0) Monocytes (%) (Auto) 7.5 % (1.0-10.0) Eosinophils (%) (Auto) 1.5 % (0.0-3.0) Basophils (%) (Auto) 0.9 % (0.0-2.0) Prothrombin Time 9.7 SEC (9.30-11.50) Prothrombin Time INR 0.9 (0.9-1.1) PTT 30 SEC (23-33) Urine Color Yellow Urine Appearance Clear Urine pH 7 (4.5-8.0) Urine Specific [place] 1.010 (1.005-1.035) Urine Protein 2+ (NEGATIVE) H Urine Glucose (UA) Negative (NEGATIVE) Urine Ketones Negative (NEGATIVE) Urine Blood Negative (NEGATIVE) Urine Nitrite Negative (NEGATIVE) Urine Bilirubin Negative (NEGATIVE) Urine Urobilinogen 4 MG/DL (0.0-1.0) H Urine Leukocyte Esterase 1+ (NEGATIVE) H Urine RBC 0-2 /HPF (0 - 0) H Urine WBC 2-4 /HPF (0 - 0) Urine Squamous Epithelial Cells None /LPF (NONE/OCC) Urine Amorphous Sediment Few /LPF (NONE) H Urine Bacteria Few /HPF (NONE) Sodium Level 140 MMOL/L (136-145) Potassium Level 3.9 MMOL/L (3.5-5.1) Chloride Level 100 MMOL/L (98-107) Carbon Dioxide Level 33 MMOL/L (21-32) H Anion Gap 7 mmol/L (5-15) Blood Urea Nitrogen 12 mg/dL (7-18) Creatinine 1.1 MG/DL (0.55-1.30) Estimate Glomerular Filtration Rate > 60 mL/min (>60) Glucose Level 101 MG/DL (74-106) Calcium Level 9.1 MG/DL (8.5-10.1) Total Bilirubin 0.3 MG/DL (0.2-1.0) Aspartate Amino Transferase (AST) 36 U/L (15-37) Alanine Aminotransferase (ALT) 25 U/L (12-78) Alkaline Phosphatase 89 U/L (46-116) Total Creatine Kinase 526 U/L (26-308) H Troponin I 0.026 ng/mL (0.000-0.056) Pro-B-Type Natriuretic Peptide 330 pg/mL (0-125) H Total Protein 8.2 G/DL (6.4-8.2) Albumin 3.0 G/DL (3.4-5.0) L Globulin 5.2 g/dL Albumin/Globulin Ratio 0.6 (1.0-2.7) L Urine Opiates Screen Negative (NEGATIVE) Urine Barbiturates Screen Negative (NEGATIVE) Phencyclidine (PCP) Screen Negative (NEGATIVE) Urine Amphetamines Screen Negative (NEGATIVE) Urine Benzodiazepines Screen Negative (NEGATIVE) Urine Cocaine Screen Negative (NEGATIVE) Urine Marijuana (THC) Screen Positive (NEGATIVE) H EKG Diagnostic Results Rate: normal Rhythm: NSR ST Segments: no acute changes - Right axis and nonspecific ST-T wave changes with a prolonged QT interval Rhythm Strip Diag. Results EP Interpretation: yes Rhythm: NSR, no PVC's, no ectopy Chest X-Ray Diagnostic Results Chest X-Ray Diagnostic Results : Chest X-Ray Ordered: Yes # of Views/Limited/Complete: 1 View Indication: Shortness of Breath EP Interpretation: Yes Interpretation: no effusion, no pneumothorax, other - CHF Impression: Other Electronically Signed by: Electronically signed by Orlando Hector MD Last Vital Signs Date Time Temp Pulse Resp B/P (MAP) Pulse Ox O2 Delivery O2 Flow Rate FiO2 08/09/18 00:15 97.6 91 18 141/82 98 Nasal Cannula 2.0 21 Status: improved Disposition: XFER SHT-TRM HOSP Condition: Serious Orlando Hector MD Aug 08, 2018 19:56
[2018-08-08] MEDS ORDERED: Albuterol ud Inhalation HHN ONE (20:00)
[2018-08-08] MEDS ORDERED: Ipratropium 0.02% Inh Soln 2.5ml UD HHN ONE (20:00)
[2018-08-08 20:32] LABS: APPEARANCE,URINE CLEAR; BILIRUBIN, URINE NEGATIVE (NEGATIVE); GLUCOSE, URINE (UA) NEGATIVE (NEGATIVE); KETONES,URINE NEGATIVE (NEGATIVE); LEUKOCYTE ESTERASE ,URINE 1+ (NEGATIVE); NITRITE,URINE NEGATIVE (NEGATIVE); PH,URINE 7 (4.5-8.0); PROTEIN,URINE 2+ (NEGATIVE); UROBILINOGEN,URINE 4 MG/DL (0.0-1.0)
[2018-08-08 20:34] LABS: COLOR,URINE YELLOW
--- NOTE | 2018-08-08 20:36 | Diagnostic Imaging Report ---
EXAM: XR Chest, 1 View CLINICAL HISTORY: DYSPNEA TECHNIQUE: Frontal view of the chest. COMPARISON: 06/12/2018 FINDINGS: Limitations: Soft tissue attenuation. Lungs: No consolidation. Pleural space: Unremarkable. No pneumothorax. Heart: Stable cardiomediastinal silhouette. Mediastinum: See above. Bones/joints: No acute osseous abnormality. IMPRESSION: No acute cardiopulmonary process.
[2018-08-08 20:44] LABS: ANION GAP 7 mmol/L (5-15); BLOOD UREA NITROGEN 12 mg/dL (7-18); CALCIUM 9.1 MG/DL (8.5-10.1); CARBON DIOXIDE 33 MMOL/L (21-32); CHLORIDE 100 MMOL/L (98-107); CREATININE 1.1 MG/DL (0.55-1.30); POTASSIUM 3.9 MMOL/L (3.5-5.1); SODIUM 140 MMOL/L (136-145)
[2018-08-08 20:45] LABS: INR 0.9 (0.9-1.1)
[2018-08-08 20:54] LABS: ALANINE AMINOTRANSFERASE 25 U/L (12-78); ALBUMIN/GLOBULIN RATIO 0.6 (1.0-2.7); ALKALINE PHOSPHATASE 89 U/L (46-116); ASPARTATE AMINO TRANSFERASE 36 U/L (15-37); BILIRUBIN,TOTAL 0.3 MG/DL (0.2-1.0); CREATINE KINASE 526 U/L (26-308)
[2018-08-08 21:03] LABS: BASOPHILS % (AUTO) 0.9 % (0.0-2.0); EOSINOPHILS % (AUTO) 1.5 % (0.0-3.0); HEMATOCRIT 40.9 % (42.0-52.0); HEMOGLOBIN 12.5 G/DL (14.2-18.0); LYMPHOCYTES % (AUTO) 22.5 % (20.0-45.0); MEAN CORPUSCULAR VOLUME 79 FL (80-99); MONOCYTES % (AUTO) 7.5 % (1.0-10.0); NEUTROPHILS % (AUTO) 67.7 % (45.0-75.0); PLATELET COUNT 373 K/UL (150-450); RED BLOOD COUNT 5.16 M/UL (4.70-6.10); RED CELL DISTRIBUTION WIDTH 15.4 % (11.6-14.8); WHITE BLOOD COUNT 10.8 K/UL (4.8-10.8)
[2018-08-08] MEDS ORDERED: ADVAIR 250/501 PUFFS INH (21:50)
[2018-08-08] MEDS ORDERED: PROCARDIA XL90 M4 ORAL (21:50)
[2018-08-08] MEDS ORDERED: BUMETANIDE2 MG ORAL (21:50)
[2018-08-08] MEDS ORDERED: POTASSIUM CHLO20 ME1 ORAL (21:50)
[2018-08-08] MEDS ORDERED: Morphine Sulfate 4mg/ml Inj (IV/IM USE ONLY) IVP ONE (23:15)
[2018-08-09 00:15] VITALS: BP 141/82
== END 2018-08-09 00:20 | disposition short-term general hospital (02) ==
LOC: EMR 20:01
DX: R07.9 Chest pain, unspecified (principal); J98.01 Acute bronchospasm; I27.81 Cor pulmonale (chronic); R10.30 Lower abdominal pain, unspecified; I10 Essential (primary) hypertension; J44.9 Chronic obstructive pulmonary disease, unspecified; E11.9 Type 2 diabetes mellitus without complications
CPT/HCPCS: 36415; 71045; 80053; 80307; 81003; 82550; 83880; 84484; 85025; 85610; 85730; 93005; 94640; 94664; 96374; 96375; 99285; J1940; J2270; J2405

== ENCOUNTER 2019-01-10 16:56 | Emergency (ER) | payer OTHER ==
[~2019-01-10] VITALS: Ht 162.6 cm; Wt 145.1 kg
[~2019-01-10 16:56] MED LIST changes: +ADVAIR 250/501 PUFFS INH; +POTASSIUM CHLO20 ME1 ORAL; +PROCARDIA XL90 M4 ORAL
--- NOTE | 2019-01-10 17:15 | NUR ---
ED Nurse Note: Patient walked into ED c/o left posterior calf abrasion. patient reports hx of PVD. patient is alert awake x4 ambulatory. patient reports his socks "got stuck to the scab/drains from the wound." irrigated the wound with sterile normal saline and took of the socks. ERMD at bedside.
[2019-01-10] MEDS ORDERED: Lidocaine HCl 2% Jelly 6ml Tube TOPIC ONE (17:30)
[2019-01-10] MEDS ORDERED: Bumetanide 1mg tab ORAL ONE (17:30)
--- NOTE | 2019-01-10 17:32 | Emergency Room Report ---
History of Present Illness General Chief Complaint: Skin Rash/Abscess Source: Patient Present Illness HPI Patient is a 48-year-old male who presented after increased left lower extremity discomfort. Patient had a recent change in his activity. 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 Patient noted to having increased swelling to the legs during working. He had prior history of cor pulmonale and is taking diuretics. Patient reports missing his diuretic dose this morning. He reports having pain to the area of ulceration. Patient had prior history of open wounds to his extremities. Allergies: Coded Allergies: No Known Allergies (Unverified , 04/08/17) Patient History Past Medical History: see triage record Reviewed Nursing Documentation: PMH: Agreed; PSxH: Agreed Nursing Documentation-PMH Past Medical History: No History, Except For Hx Cardiac Problems: No Hx Hypertension: Yes Hx Pacemaker: No Hx Asthma: Yes Hx COPD: Yes Hx Diabetes: Yes Hx Cancer: No Hx Gastrointestinal Problems: No Hx Dialysis: No Hx Neurological Problems: No Hx Cerebrovascular Accident: No Hx Seizures: No Review of Systems All Other Systems: negative except mentioned in HPI Physical Exam Vital Signs Date Time Temp Pulse Resp B/P (MAP) Pulse Ox O2 Delivery O2 Flow Rate FiO2 01/10/19 17:08 98.6 111 20 98 Room Air General Appearance: alert, obese, Chronically Ill Head: normocephalic, atraumatic ENT: hearing grossly normal, normal voice Neck: full range of motion, supple Respiratory: lungs clear, no respiratory distress, speaking full sentences Cardiovascular #1: edema - 2+ Musculoskeletal: normal inspection, no calf tenderness Neurologic: normal gait Psychiatric: mood/affect normal Skin: other - venous stasis changes to left leg, small ulceration to posterior left leg, no erythema or discharge Medical Decision Making Diagnostic Impression: Primary Impression: Venous stasis ulcer ER Course Patient presented for lower extremity wound. Differential diagnosis include was not limited to cellulitis, abscess, venous stasis ulcer among others. Patient has a benign exam and does not appear to require any further imaging or laboratory testing at this time. Patient was noted to have chronic lung disease secondary to obesity. He was noted to have skipped his medications this morning. Patient was given lidocaine jelly to the area for pain. Patient was advised to keep his legs elevated to wear support hose and to continue using antibiotic ointment on the area of discomfort. Patient was advised to have the wound rechecked with his primary care physician in the next few days. The patient's area does not appear to be infected at this time. Last Vital Signs Date Time Temp Pulse Resp B/P (MAP) Pulse Ox O2 Delivery O2 Flow Rate FiO2 01/10/19 17:08 98.6 111 20 98 Room Air Status: improved Disposition: HOME, SELF-CARE Condition: Stable Scripts Bacitracin Zinc* (BACITRACIN ZINC*) 1 Each Packet 1 APPLIC TOPIC THREE TIMES A DAY, #30 PACKET Prov: Eleuterio Jain MD 01/10/19 Lidocaine HCL 2% Jelly* (Lidocaine Jelly 2%*) 5 Ml [email or web address] 5 ML TOPIC DAILY, #15 GM Prov: Eleuterio Jain MD 01/10/19 Eleuterio Jain MD January 10, 2019 17:32
[2019-01-10] MEDS ORDERED: BACITRACIN ZIN1 EACH TOPIC (17:34)
[2019-01-10] MEDS ORDERED: LD2JL30 TOPIC (17:34)
[2019-01-10] MEDS ORDERED: Bacitracin Oint UD TOPIC ONE ×2 (17:38→17:45)
[2019-01-10 17:44] VITALS: BP 129/59
[2019-01-10 17:45] VITALS: BP 128/57
--- NOTE | 2019-01-10 17:48 | NUR ---
ER DISCHARGE NOTE: Patient is cleared to be discharged per ERMD Dr. Jain, pt is aox4, on room air, with stable vital signs. pt was given dc and prescription instructions, pt was able to verbalize understanding, pt id band removed without complications. pt is able to ambulate with steady gait. pt took all belongings.
== END 2019-01-10 17:45 | disposition home or self-care (01) ==
LOC: EMR 17:35
DX: I83.029 Varicose veins of left lower extremity with ulcer of unspecified site (principal); I10 Essential (primary) hypertension; J44.9 Chronic obstructive pulmonary disease, unspecified; E11.9 Type 2 diabetes mellitus without complications; J98.4 Other disorders of lung; E66.9 Obesity, unspecified; Z68.43 Body mass index [BMI] 50.0-59.9, adult
CPT/HCPCS: 99282

== ENCOUNTER 2019-01-21 20:40 | Emergency (ER) | payer OTHER ==
[~2019-01-21] VITALS: Ht 162.6 cm; Wt 146.5 kg
[~2019-01-21 20:40] MED LIST changes: +BACITRACIN ZIN1 EACH TOPIC; +LD2JL30 TOPIC
[2019-01-21] MEDS ORDERED: LOSARTAN POTASS25 MG ORAL (20:50)
[2019-01-21] MEDS ORDERED: BUMETANIDE2 MG ORAL (20:50)
--- NOTE | 2019-01-21 20:58 | NUR ---
ED Nurse Note: Patient walked into ED c/o swelling his ears and on his chin, states that it first started 3 days ago, denies any SOB. Pt is AO x 4timesVSS, on room air no distress. EUNICED seen Pt at bedside.
[2019-01-21 20:59] VITALS: BP 162/88
[2019-01-21] MEDS ORDERED: BENADRYL25 MG ORAL (21:27)
[2019-01-21] MEDS ORDERED: PEPCID AC20 M2 PO (21:27)
[2019-01-21] MEDS ORDERED: PREDNISONE20 MG ORAL (21:27)
[2019-01-21 21:30] VITALS: BP 150/80
--- NOTE | 2019-01-21 21:30 | NUR ---
ER DISCHARGE NOTE: Patient is cleared to be discharged per ERMD, pt is aox4, on room air, with stable vital signs. pt was given dc and prescription instructions, pt was able to verbalize understanding, pt id band removed without complications. pt is able to ambulate with steady gait. pt took all belongings.
--- NOTE | 2019-01-21 21:41 | Emergency Room Report ---
History of Present Illness General Chief Complaint: Skin Rash/Abscess Source: Patient Present Illness HPI Patient just with reports of swelling to the bilateral ears, facial area Patient reports that for the past one to 2 days Initially he noticed the left ear swelling It improved and then he noticed the right ear swelling He also has noticed some irritation left facial region just at the nasal labial region Denies any chest pain or shortness of breath denies any vomiting or diarrhea He reports some increased itching previously which has improved significantly however still feels some in the right ear Patient is using a BiPAP machine Denies any new medications or hair products Denies any increased swelling in his legs patient has history of CHF, diabetes and hypertension Patient also has reported open left leg wound which he is caring for Allergies: Coded Allergies: No Known Allergies (Unverified , 04/08/17) Patient History Past Medical History: see triage record Pertinent Family History: none Reviewed Nursing Documentation: PMH: Agreed; PSxH: Agreed Nursing Documentation-PMH Past Medical History: No History, Except For Hx Cardiac Problems: No Hx Hypertension: Yes Hx Pacemaker: No Hx Asthma: Yes Hx COPD: Yes Hx Diabetes: Yes Hx Cancer: No Hx Gastrointestinal Problems: No Hx Dialysis: No Hx Neurological Problems: No Hx Cerebrovascular Accident: No Hx Seizures: No Review of Systems All Other Systems: negative except mentioned in HPI Physical Exam Vital Signs Date Time Temp Pulse Resp B/P (MAP) Pulse Ox O2 Delivery O2 Flow Rate FiO2 01/21/19 20:44 99.1 91 18 164/98 (120) 94 Room Air Sp02 EP Interpretation: reviewed, normal General Appearance: well appearing, no apparent distress Head: normocephalic, atraumatic Eyes: bilateral eye PERRL, bilateral eye EOMI ENT: other - No obvious edema noted to the ears are facial area patient reports that the swelling has significantly improved and he mainly feels some of the mild itching at this time, there was some mild irritation of the left nasolabial region of the face no obvious urticaria, Neck: supple Respiratory: lungs clear, no retraction Cardiovascular #1: regular rate, rhythm Gastrointestinal: non tender Musculoskeletal: normal inspection - Ambulatory without focal deficit Neurologic: alert, oriented x3, responsive Psychiatric: normal inspection Skin: other - Edema bilaterally lower extremity, as above Lymphatic: no adenopathy Medical Decision Making Diagnostic Impression: Primary Impression: Rash and other nonspecific skin eruption Additional Impression: allergic reaction ER Course Patient has multiple differentials in consideration Multiple comorbidities including CHF, diabetes Patient is obese with obvious edema The current presentation is similar to previous when he had some swelling to his lips I entertained the swelling to the ear is being related to vascular pathology as opposed to allergic reaction Given the itching sensation and the acuteness of it given the improvement already appears to be more related to allergic reaction Patient has close follow-up with his primary physician Is initially treated conservatively regarding this and will have close follow-up Last Vital Signs Date Time Temp Pulse Resp B/P (MAP) Pulse Ox O2 Delivery O2 Flow Rate FiO2 01/21/19 20:59 98.7 82 18 162/88 98 Room Air Status: improved Disposition: HOME, SELF-CARE Condition: Improved Scripts Famotidine (PEPCID AC) 20 Mg Tablet 20 MG PO DAILY for 10 Days, TAB Prov: Shikha Hendrickson DO 01/21/19 Diphenhydramine Hcl* (BENADRYL*) 25 Mg Capsule 25 MG ORAL Q6H PRN for Itching, #20 CAP Prov: Shikha Hendrickson DO 01/21/19 Prednisone* (PREDNISONE*) 20 Mg Tablet 20 MG ORAL BID, #5 TAB Prov: Shikha Hendrickson DO 01/21/19 Patient Instructions: Rash, Allergies, [id number] Additional Instructions: Patient is provided with the discharge instructions notified to follow up with primary doctor in the next 2-3 days otherwise return to the er with any worsening symptoms. Please note that this report is being documented using [employer] technology. This can lead to erroneous entry secondary to incorrect interpretation by the dictating instrument. Shikha Hendrickson DO January 21, 2019 21:41
== END 2019-01-21 22:33 | disposition home or self-care (01) ==
LOC: EMR 21:07
DX: R21 Rash and other nonspecific skin eruption (principal); T78.40XA Allergy, unspecified, initial encounter; X58.XXXA Exposure to other specified factors, initial encounter; I10 Essential (primary) hypertension; J44.9 Chronic obstructive pulmonary disease, unspecified; E11.9 Type 2 diabetes mellitus without complications
CPT/HCPCS: 99282; J7512